=== PATIENT | female | born 1975 | race Caucasian/White ===

== ENCOUNTER 2016-05-14 11:25 | Emergency (ER) | payer OTHER ==
--- NOTE | 2016-05-14 11:51 | EDPHY ---
H & P Stated Complaint: LEFT CP UNDER L BREAST 1 WEEK, WORSE AFTER LIFTING, SEEN [facility] HPI/ROS: CHIEF COMPLAINT: Left-sided chest pain HISTORY OF PRESENT ILLNESS: patient complains of 1 week history of left-sided chest pain. This was spontaneous in onset and constant duration. Mild to moderate. Worse with palpation, leaning forward and deep inspiration. No worse when walking. No nausea, vomiting or diaphoresis. No cough or congestion. No shortness of breath. History of hypertension and diabetes but no history of coronary artery disease. No recent travel or surgery. No history of venous thrombolic event. No erythema or edema of the lower extremities. No other associated complaints or modifying factors. She was seen at [facility] 2 days ago where she says they performed an EKG, troponin and chest x-ray discharged home with instructions to take Aleve. It has not improved altered so. REVIEW OF SYSTEMS: Ten systems reviewed and are negative unless otherwise noted in the HPI EXAMINATION General Appearance: Alert, no distress , drinking coffee Head: normocephalic, atraumatic Eyes: Pupils equal and round, no conjunctival pallor or injection ENT, Mouth: Mucous membranes moist. Uvula midline. No erythema or edema. Braces noted. Neck: Normal inspection, supple, non-tender Respiratory: Lungs are clear to auscultation No wheezing, rhonchi or crackles. No distress. Cardiovascular: Regular rate and rhythm . No murmur. Pulses intact distally and symmetrically.Painful to palpation on the left anterior chest. Gastrointestinal: Abdomen is soft and nontender . No CVA tenderness Neurological: A&O, nonfocal, strength symmetric Skin: Warm and dry, no rash Extremities: Nontender, no pedal edema . Painful palpation left anterior chest without crepitus or deformity. Psychiatric: Mood and affect normal DIFFERENTIAL DIAGNOSES: Including but not limited to costochondritis, muscular strain, pleurisy, pericarditis, ACS, chest pain on this MDM: 11:45 a.m. left-sided chest pain that is completely reproducible with palpation and deep inspiration. No worse with exertion. No nausea, vomiting or diaphoresis. No syncope or dizziness. She does have history of diabetes and hypertension, thus we will obtain EKG, troponin and chest x-ray. I do not feel that she has any concern for cardiac involvement of this pain is completely reducible on examination. She was seen at [facility] for this recently and diagnosed with inflammation has been taking Aleve. He is resting comfortably in no acute distress drinking a large coffee at this time. given the patient has already had a chest x-ray this week, and she is asking for CT scan of the chest, I will obtain a CT chest angio to rule out PE and further exam of the left anterior chest pain. I do not suspect PE. 1:40 p.m. notified by radiologist Dr. Cortez that the CT scan of the chest as no acute findings of any kind. No PE or intrathoracic abnormalities noted. I have re- evaluated the patient. She is resting comfortably in no acute distress. I have notified her of her blood sugar of 229. Recommend she follow up with primary care physician for closer monitoring of this and potentially changing her insulin dosing. Patient's pain medication prescribed earlier this month. She can take as prescribed as needed. She is comfortable with this plan and discharged home stable condition. EKG: Interpreted by Dr. Kirkpatrick SUPERVISION: This patient was independently evaluated without the aide of supervising physician. Source: Patient Exam Limitations: No limitations - Personal History LMP (Females 10-55): Extended Cycle BCP/Inj Current Tetanus/Diphtheria Vaccine: Unsure Current Tetanus Diphtheria and Acellular Pertussis (TDAP): Unsure - Medical/Surgical History Hx Asthma: No Hx Chronic Respiratory Disease: No Hx Diabetes: Yes Hx Cardiac Disease: No Hx Renal Disease: No Hx Cirrhosis: No Hx Alcoholism: No Hx HIV/AIDS: No Hx Splenectomy or Spleen Trauma: No Other PMH: DIABETESHTN, HYPOTHYROID, DEPRESSION - Social History Smoking Status: Former smoker Constitutional: Initial Vital Signs Temperature (C) 98.1 F 05/14/16 11:29 Heart Rate 96 05/14/16 11:29 Respiratory Rate 18 05/14/16 11:29 Blood Pressure 122/79 H 05/14/16 11:29 O2 Sat (%) 99 05/14/16 11:29 O2 Delivery Mode Room Air Allergies/Adverse Reactions: No Known Allergies Allergy (Unverified 05/14/16 11:32) Home Medications: Medication Instructions Recorded Humalog 01/19/16 Levothyroxine 01/19/16 Lisinopril [Zestril 10 mg (*)] 10 mg PO DAILY 05/14/16 glyBURIDE [Glyburide] 500 gm MC BID 05/14/16 Medical Decision Making - Data Points Laboratory Results: Laboratory Results 05/14/16 11:48 05/14/16 11:48 05/14/16 05/14/16 05/14/16 11:48 11:48 11:48 WBC RBC Hgb Hct MCV MCH MCHC RDW Plt Count MPV Neut % (Auto) Lymph % (Auto) [place] % (Auto) Eos % (Auto) Baso % (Auto) Nucleat RBC Rel Count Absolute Neuts (auto) Absolute Lymphs (auto) Absolute Monos (auto) Absolute Eos (auto) Absolute Basos (auto) Absolute Nucleated RBC Immature Gran % Immature Gran # PT 12.1 SEC SEC (12.0-15.0) INR 0.91 (0.83-1.16) APTT 29.4 SEC SEC (23.0-38.0) Sodium 137 mEq/L mEq/L (134-144) Potassium 5.1 mEq/L mEq/L (3.5-5.2) Chloride 102 mEq/L mEq/L (97-110) Carbon Dioxide 26 mEq/l mEq/l (22-31) Anion Gap 9 mEq/L mEq/L (8-16) BUN 11 mg/dL mg/dL (7-23) Creatinine 0.5 mg/dL L mg/dL (0.6-1.0) Estimated GFR > 60 Glucose 229 mg/dL H mg/dL (70-100) Calcium 9.4 mg/dL mg/dL (8.5-10.4) Troponin I < 0.012 ng/mL ng/mL (0-0.034) NT-Pro-B Natriuret Pep 30 pg/mL pg/mL (0-125) Beta HCG, Qual NEGATIVE 05/14/16 11:48 WBC 8.41 10^3/uL 10^3/uL (3.80-9.50) RBC 5.02 10^6/uL 10^6/uL (4.18-5.33) Hgb 14.0 g/dL g/dL (12.6-16.3) Hct 41.5 % % (38.0-47.0) MCV 82.7 fL fL (81.5-99.8) MCH 27.9 pg pg (27.9-34.1) MCHC 33.7 g/dL g/dL (32.4-36.7) RDW 12.7 % % (11.5-15.2) Plt Count 359 10^3/uL 10^3/uL (150-400) MPV 9.9 fL fL (8.7-11.7) Neut % (Auto) 61.7 % % (39.3-74.2) Lymph % (Auto) 30.3 % % (15.0-45.0) [place] % (Auto) 5.9 % % (4.5-13.0) Eos % (Auto) 1.2 % % (0.6-7.6) Baso % (Auto) 0.2 % L % (0.3-1.7) Nucleat RBC Rel Count 0.0 % % (0.0-0.2) Absolute Neuts (auto) 5.18 10^3/uL 10^3/uL (1.70-6.50) Absolute Lymphs (auto) 2.55 10^3/uL 10^3/uL (1.00-3.00) Absolute Monos (auto) 0.50 10^3/uL 10^3/uL (0.30-0.80) Absolute Eos (auto) 0.10 10^3/uL 10^3/uL (0.03-0.40) Absolute Basos (auto) 0.02 10^3/uL 10^3/uL (0.02-0.10) Absolute Nucleated RBC 0.00 10^3/uL 10^3/uL (0-0.01) Immature Gran % 0.7 % % (0.0-1.1) Immature Gran # 0.06 10^3/uL 10^3/uL (0.00-0.10) PT INR APTT Sodium Potassium Chloride Carbon Dioxide Anion Gap BUN Creatinine Estimated GFR Glucose Calcium Troponin I NT-Pro-B Natriuret Pep Beta HCG, Qual Medications Given: Discontinued Medications Sodium Chloride (Ns) 1,000 mls @ 0 mls/hr IV ONCE ONE PRN Reason: Wide Open Stop: 05/14/16 12:27 Last Admin: 05/14/16 12:26 Dose: 1,000 mls Departure - Departure Disposition: Home, Routine, Self-Care Clinical Impression: Chest wall pain Diabetes mellitus with hyperglycemia Qualifiers: Diabetes mellitus type: type 1 Qualified Code(s): E10.65 - Type 1 diabetes mellitus with hyperglycemia Condition: Good Instructions: Chest Wall Pain (ED), Diabetic Hyperglycemia (ED) Additional Instructions: Follow-up with primary care physician for further care and to discuss better control her blood sugars. Referrals: ANALY RAMÍREZ [Other] - As per Instructions Stand Alone Forms: Work Limited Duty
[2016-05-14 12:07] LABS: % IMMATURE GRANULYOCYTES 0.7 % (0.0-1.1); ABSOLUTE IMMATURE GRANULOCYTES 0.06 10^3/uL (0.00-0.10); ADD DIFF? NO; ADD MORPH? NO; ADD SCAN? NO; ATYPICAL LYMPHOCYTE FLAG 10 (0-99); FRAGMENT RBC FLAG 0 (0-99); HEMATOCRIT 41.5 % (38.0-47.0); LEFT SHIFT FLG 0 (0-99); LIPEMIA HEMOLYSIS FLAG 80 (0-99); MEAN CELL HEMOGLOBIN 27.9 pg (27.9-34.1); MEAN CELL HEMOGLOBIN CONCENTR. 33.7 g/dL (32.4-36.7); MEAN CELL VOLUME 82.7 fL (81.5-99.8); MEAN PLATELET VOLUME 9.9 fL (8.7-11.7); PLATELET CLUMPS FLAG 0 (0-99); PLATELET COUNT 359 10^3/uL (150-400); RED BLOOD CELL COUNT 5.02 10^6/uL (4.18-5.33); RED CELL DISTRIBUTION WIDTH 12.7 % (11.5-15.2)
[2016-05-14 12:17] LABS: INR 0.91 (0.83-1.16); PROTIME(PATIENT) 12.1 SEC (12.0-15.0)
[2016-05-14 12:18] LABS: APTT 29.4 SEC (23.0-38.0)
--- NOTE | 2016-05-14 12:21 | CPEKG ---
Heart Rate: 86 RR Interval: 698 P-R Interval: 172 QRSD Interval: 84 QT Interval: 356 QTC Interval: 426 P [place]: 9 QRS [place]: 32 T Wave [place]: -9 EKG Severity - BORDERLINE ECG - EKG Impression: SINUS RHYTHM EKG Impression: BORDERLINE T ABNORMALITIES, INFERIOR LEADS Electronically Signed By: Maurizio Hinojosa 15-May-2016 10:03:10
[2016-05-14 12:26] LABS: ANION GAP 9 mEq/L (8-16); CALCIUM 9.4 mg/dL (8.5-10.4); CARBON DIOXIDE 26 mEq/l (22-31); CHLORIDE 102 mEq/L (97-110); CREATININE 0.5 mg/dL (0.6-1.0); GLOMERULAR FILTRATION RATE > 60; GLUCOSE 229 mg/dL (70-100); POTASSIUM 5.1 mEq/L (3.5-5.2); SODIUM 137 mEq/L (134-144)
[2016-05-14] MEDS ORDERED: NS 1,000 ML IV ONE (12:26)
[2016-05-14 12:37] LABS: TROPONIN I < 0.012 ng/mL (0-0.034)
[2016-05-14] MEDS ORDERED: IOPAMIDOL (ISOVUE-370) 150 ML BTL IV ONE (12:49)
[2016-05-14 14:02] VITALS: BP 140/72; PULSE 80; RESP 20; TEMP 98.2; O2SAT 99
== END 2016-05-14 14:02 | disposition home or self-care (01) ==
DX: R07.89 Other chest pain (principal); E10.65 Type 1 diabetes mellitus with hyperglycemia; I10 Essential (primary) hypertension; Z87.891 Personal history of nicotine dependence
CPT/HCPCS: Q9967

== ENCOUNTER → 2017-05-10 | Outpatient (CLI) | payer OTHER, MEDICAID | LOC: FIMAGING 16:17 | DX: M41.82 Other forms of scoliosis, cervical region (principal) ==